=== PATIENT | male | born 1965 | race Caucasian/White ===

== ENCOUNTER 2024-11-02 07:25 | Emergency (ER) | payer MEDICARE, OTHER ==
[~2024-11-02] VITALS: Ht 162.6 cm; Wt 100.5 kg
[~2024-11-02 07:25] MED LIST: KETOCONAZOLE15 GM TOP
[2024-11-02] MEDS ORDERED: LEVOTHYROXINE50 MC1 (07:56)
[2024-11-02] MEDS ORDERED: HYDRALAZINE HCL50 MG PO (07:56)
[2024-11-02] MEDS ORDERED: ATORVASTATIN CA20 MG PO (07:56)
[2024-11-02] MEDS ORDERED: CARVEDILOL12.5 MG PO (07:56)
[2024-11-02] MEDS ORDERED: ASPIRIN EC81 MG PO (07:56)
[2024-11-02] MEDS ORDERED: ULTRAM 50MG50 MG PO (08:13)
[2024-11-02] MEDS ORDERED: TYLENOL325 MG PO (08:13)
[2024-11-02] MEDS: BACITRACIN ZINC 0.9GM TP ONE (08:43)
[2024-11-02 09:00] VITALS: PULSE 57; RESP 16; TEMP 97.4; O2SAT 98
== END 2024-11-02 09:00 | disposition home or self-care (01) ==
LOC: FSED 07:38
DX: S42.291A Other displaced fracture of upper end of right humerus, initial encounter for closed fracture (principal); S80.211A Abrasion, right knee, initial encounter; W18.39XA Other fall on same level, initial encounter; Y93.K1 Activity, walking an animal; Y92.89 Other specified places as the place of occurrence of the external cause; I10 Essential (primary) hypertension; E78.5 Hyperlipidemia, unspecified; E03.9 Hypothyroidism, unspecified; I25.10 Atherosclerotic heart disease of native coronary artery without angina pectoris; Z85.528 Personal history of other malignant neoplasm of kidney; Z95.1 Presence of aortocoronary bypass graft
CPT/HCPCS: 99284